=== PATIENT | male | born 1990 | race Caucasian/White ===

== ENCOUNTER → 2017-11-04 | Outpatient (CLI) | payer BC ==
--- NOTE | 2017-11-04 16:56 | RAD ---
INDICATION: Pain, injury. TECHNIQUE: 3 views of the right foot are submitted for review. No comparison is available. FINDINGS: There is no fracture or dislocation. There is no osseous lesion. There is no soft tissue swelling. IMPRESSION: Negative for fracture. Electronically signed by: Wesley Davidson MD (11/04/2017 4:52 PM) [facility]
--- NOTE | 2017-11-04 16:56 | RAD ---
INDICATION: Injury, pain. TECHNIQUE: 3 views of the right ankle are submitted for review. No comparison is available. FINDINGS: There is no fracture or dislocation. There is no soft tissue swelling. IMPRESSION: Negative for fracture. Electronically signed by: Wesley Davidson MD (11/04/2017 4:53 PM) [facility]
== END | disposition home or self-care (01) ==
LOC: DXRAD 15:58
DX: M25.571 Pain in right ankle and joints of right foot (principal)
CPT/HCPCS: 73610; 73630